=== PATIENT | male | born 1965 | race Caucasian/White ===

== ENCOUNTER 2019-03-21 11:28 | Inpatient (IN) | payer OTHER ==
[~2019-03-21] VITALS: Ht 170.2 cm; Wt 78.5 kg
--- NOTE | ~2019-03-21 | CON ---
[address] [address] CONSULTATION Name: EVAN HURTADO Room: [address] IN M.R.#: [id number] Admission: 03/21/19 Attend Phys: Hetal Monet MD Discharge: Date of : 65 Report #: [id number] THIS REPORT FOR: //name// CC: Basilia Monet DATE OF SERVICE: 03/22/2019 HISTORY OF PRESENT ILLNESS: This is a 53-year-old male patient who was evaluated by me for any neurological etiology for the patient's dizziness. The patient indicated that he was having diarrhea. He started having dizziness. Dizziness is worse when he tries to get up. He was given some fluid in the Emergency Room. He is feeling better, but he is not back to the baseline. He gives a history that he had episodes of dizziness every year. His history is poor in that regard. He is fully conscious during this episode and he has no focal neurological deficit with it. REVIEW OF SYSTEMS: Indicates his grandmother of some congenital heart disease. He does not know anything more about that. It looks like he had some nystagmus and lactic acidosis when he came in. He had some symptoms of problem with the eye in the past. He says that he has a history of hyperglycemia in the past. That was his relevant 14-point review of system. He is not complaining of any new eye, cardiac, respiratory, , musculoskeletal, constitutional, dermatological, hematological, psychiatric, throat, allergic symptom associated with present symptomatology. PAST MEDICAL HISTORY: Positive for similar dizziness, but they are not very frequent. FAMILY HISTORY: Positive for congenital heart disease, but the exact diagnosis is unknown. SOCIAL HISTORY: He drinks alcohol very rarely. PHYSICAL EXAMINATION: Indicates he is alert, responsive and able to follow simple and complex commands. His speech, concentration, fund of knowledge and memory is at his baseline. Cranial nerve examination 2-12 looks unremarkable. It looks like his nystagmus has resolved. His strength, sensation, reflexes and tone is symmetrical. He has no cerebellar sign. He has no papilledema. He is a well-developed individual who does not have any dysmorphic features of eyes, ears and face. His vision and hearing looks adequate. His pulses are palpable. He has no edema, cyanosis or jaundice. Cardiac examination is unremarkable. No respiratory difficulty was noticed. His blood pressure is 109/72, it has been even lower than that. His respiration is 18, pulse is [address] [place] [address] CONSULTATION Name: EVAN HURTADO Room: [address]#: [id number] Admission: 03/21/19 Attend Phys: Hetal Monet MD Discharge: Date of : 65 Report #: [id number] and temperature is 98. LABORATORY DATA: His white count is normal and his sodium and potassium is normal. He had head CT and MRI that does not show any pathology in the brain, which can explain the patient's symptoms. IMPRESSION: The patient's clinical presentation is more suggestive of dehydration because of the patient's diarrhea. If he has diabetes, he is predisposed to autonomic problems and these symptoms can come even with mild dehydration. Worrisome feature in this patient is that he gives a history that the grandmother of some congenital condition. He also had his episode of dizziness every year or so. Because of that, I will do some more workup, I will order an echocardiogram and MRA. If that is unremarkable, I do not think any further neurological workup is needed until the patient has more symptoms. All of it was discussed with the patient and he wants to follow this plan. Thank you very much for this referral. By: [id number] Teixeira MD /nt
[~2019-03-21 11:28] MED LIST: ACETAMINOPHEN-1 EAC1; ATIVAN0.5 MG PO; AZITHROMYCIN 2250 MG PO; BUTALB-ACETAMI1 EAC2; CARISOPRODOL 3350 MG PO; CEFUROXIME250 MG PO; CELEXA 10 MG TA10 M1 PO; CELEXA10 MG PO; CLONAZEPAM 1 MG1 M1 PO; COZAAR 50 MG TA50 M2 PO; CYCLOBENZAPRINE10 MG; DUONEB 2.5-0.5 M3 ML INH; FIORICET 50-321 EACH; FLEXERIL PO; FLOXIN OTI0.3 %/5 M1 OT; GLUCOPHAGE XR500 MG PO; HYDROCODON-ACE1 EACH; HYZAAR 100-251 EACH PO; LEVAQUIN 750 M750 MG PO; LIPITOR 20 MG T20 M1 PO; MAXALT MLT ODT10 M1 PO; MEDROLDOSEPACK PO; METFORMIN HCL500 MG PO; NAPROSYN500 MG; NAPROSYN500 MG PO; NOHOMEMEDICATIONS; NOVOLOG100 UNIT/1 SUBQ; OMEPRAZOLE40 MG PO; POTASSIUM20 PO; PREDNISONE50 MG PO; PRILOSEC40 MG PO; SYMBICORT160 MCG/4. INH; TAMIFLU75 MG PO; TOPROL XL100 MG PO; TOPROL XL25 MG PO; TRAMADOL 50 MG50 MG; TRAMADOL 50 MG50 MG PO; TRAZODONE HCL100 MG PO; VICODIN 5-3001 EACH PO; VICODIN 5-5001 EACH PO; ZANAFLEX4 MG PO; ZOFRAN ODT4 MG PO; ZOLOFT50 MG PO; ZOSYN 3/0.373.375 G3 IVPB
[2019-03-21 11:34] VITALS: BP 111/82
[2019-03-21 11:53] LABS: ABSOLUTE BASOPHILS 0.1 thou/uL (0.0-0.2); ABSOLUTE EOSINOPHILS 0.1 thou/uL (0.0-0.7); ABSOLUTE LYMPHOCYTES 1.7 thou/uL (0.8-5.3); ABSOLUTE MONOCYTES 0.9 thou/uL (0.0-1.2); ABSOLUTE NEUTROPHILS 7.3 thou/uL (1.6-8.1); BASOPHILS 0.5 %; EOSINOPHILS 0.8 %; HEMATOCRIT 45.7 % (42.0-52.0); HEMOGLOBIN 16.1 gm/dL (14.0-18.0); LYMPHOCYTES 16.9 %; MCH 31.9 pg (26.0-34.0); MCHC 35.3 g/dL (28.0-37.0); MCV 90.5 fL (80.0-100.0); MONOCYTES 8.6 %; MPV 8.2 fl. (7.2-11.1); NUCLEATED RBCS 0 /100WBC; PLATELET COUNT* 230 thou/uL (150-400); POLYS 73.2 %; RBC 5.06 mil/uL (4.50-6.00); RDW-CV 14.3 % (10.5-14.5)
[2019-03-21 12:04] LABS: ANION GAP 13 mmol/L (7-16); BUN 26 mg/dL (7-18); CHLORIDE 99 mmol/L (98-107); CO2 24 mmol/L (21-32); CREATININE 1.2 mg/dL (0.6-1.3); GLUCOSE 180 mg/dL (70-99); POTASSIUM 3.9 mmol/L (3.5-5.1); SODIUM 136 mmol/L (136-145)
[2019-03-21 12:08] LABS: PROTIME 10.1 Seconds (9.20-11.50)
[2019-03-21 12:13] LABS: ALBUMIN 3.9 g/dL (3.4-5.0); ALKALINE PHOSPHATASE 96 U/L (46-116); LIPASE 162 U/L (73-393); SGOT 18 U/L (15-37); SGPT 37 U/L (30-65); TOTAL BILIRUBIN 0.8 mg/dL (<0.1-1.0); TOTAL PROTEIN 7.6 g/dL (6.4-8.2); TROPONIN-I LEVEL <0.06 ng/mL (<0.06)
--- NOTE | 2019-03-21 12:31 | NUR ---
CONSTANTIN NOTIFIED UPON PT RETURN FROM CT. PT CONNECTED TO O2 AND MONITOR
[2019-03-21 12:45] LABS: BE -5.7 mmol/L (-2 to +3); PCO2 32.7 mmHg (35.0-45.0); pH 7.369 (7.340-7.450)
[2019-03-21 12:48] LABS: PO2 135.8 mmHg (75.0-100.0)
[2019-03-21 13:00] LABS: URINE BILIRUBIN NEGATIVE (Negative); URINE BLOOD NEGATIVE (Negative); URINE CLARITY CLEAR; URINE COLOR DARK YELLOW; URINE GLUCOSE-RANDOM TRACE (Negative); URINE KETONES TRACE (Negative); URINE LEUKOCYTES-REFLEX NEGATIVE (Negative); URINE NITRITE-REFLEX NEGATIVE (Negative); URINE PROTEIN 1+ (Negative); URINE UROBILINOGEN 0.2 E.U./dl (0.2-1.0)
--- NOTE | 2019-03-21 14:04 | EKG ---
[place] [address] ELECTROCARDIOGRAM REPORT Name: EVAN HURTADO Room: [place] [address] ADM IN .R.#: [id number] Admission: 03/21/19 Attend Phys: Hetal Monet MD Discharge: Date of : 65 Report #: [id number] THIS REPORT FOR: //name// [facility] ED Test Date: 2019-03-21 Test Time: 11:58:56 Pat Name: EVAN HURTADO Department: Room: [facility] Gender: M International Student Advisor: : [id number] Requested By: Hue Melgoza Order Number: [id number] MD: Cristian Mendoza Measurements Intervals [place] Rate: 87 P: 7 OK: 164 QRS: -18 QRSD: 89 T: 30 QT: 356 QTc: 429 Interpretive Statements Sinus rhythm Borderline left axis deviation Abnormal R-wave progression, early transition Compared to ECG 11/15/2016 08:19:53 Sinus tachycardia no longer present T-wave abnormality no longer present Electronically Signed On 03-21-2019 14:03:59 CDT by Cristian Mendoza [email or web address] <ELECTRONICALLY SIGNED> By: Cristian Mendoza MD, [facility] 03/21/19 1403 [id number] [id number] Cristian Mendoza MD, [facility] /EPI
[2019-03-21 15:17] LABS: AMP/METHAMP Negative (Negative); BARBITURATES Negative (Negative); BENZODIAZEPINES Negative (Negative); COCAINE Negative (Negative); METHADONE Negative (Negative); OPIATES Negative (Negative); PCP Negative (Negative); THC Negative (Negative)
--- NOTE | 2019-03-21 16:37 | NUR ---
MRI CHECKLIST COMPLETED BY PATIENT; PLACED IN PATIENT'S CHART. PT REMOVED EARRING FROM LEFT EAR, REFUSED BAGGIE TO PUT IT IN, STATED HE WOULD PUT IT IN HIS HAT. PT DENIED HAVING ANY FURTHER METAL ON BODY. PT IN GOWN AND READY FOR MRI.
[2019-03-21 17:46] VITALS: BP 107/75
--- NOTE | 2019-03-21 17:50 | NUR ---
ER ADMIT TO 232 VIA CART TELEPHONE REPORT GIVEN PRIOR TO ARRIVAL PATIENT SETTLED IN BED ORIENTED TO AND CALL LIGHT DENIES PAIN VS STABLE SEE CHART
[2019-03-21 18:00] VITALS: BP 110/66
[2019-03-21 19:45] VITALS: BP 97/64
[2019-03-22] VITALS: BP 102/57
[2019-03-22 04:00] VITALS: BP 100/62
[2019-03-22 04:35] LABS: ABSOLUTE EOSINOPHILS 0.1 thou/uL (0.0-0.7); ABSOLUTE LYMPHOCYTES 1.8 thou/uL (0.8-5.3); ABSOLUTE MONOCYTES 0.7 thou/uL (0.0-1.2); ABSOLUTE NEUTROPHILS 4.1 thou/uL (1.6-8.1); BASOPHILS 0.5 %; EOSINOPHILS 1.7 %; HEMATOCRIT 40.9 % (42.0-52.0); LYMPHOCYTES 26.6 %; MCH 31.6 pg (26.0-34.0); MCHC 34.6 g/dL (28.0-37.0); MCV 91.4 fL (80.0-100.0); MPV 8.6 fl. (7.2-11.1); NUCLEATED RBCS 0 /100WBC; PLATELET COUNT* 174 thou/uL (150-400); POLYS 60.2 %; RBC 4.47 mil/uL (4.50-6.00); RDW-CV 13.7 % (10.5-14.5); WBC 6.7 thou/uL (4.0-11.0)
[2019-03-22 04:48] LABS: ANION GAP 12 mmol/L (7-16); BUN 25 mg/dL (7-18); CALCIUM 9.1 mg/dL (8.5-10.1); CHLORIDE 106 mmol/L (98-107); CHOLESTEROL 113 mg/dL (<200); CO2 23 mmol/L (21-32); CREATININE 0.9 mg/dL (0.6-1.3); GLUCOSE 153 mg/dL (70-99); HDL CHOLESTEROL 40 mg/dL (>40); LDL CHOLESTEROL 38 mg/dL (<100); MAGNESIUM 1.6 mg/dL (1.8-2.4); SODIUM 141 mmol/L (136-145); TC:HDL 2.8 Ratio (Not establshd); TRIGLYCERIDE 179 mg/dL (<150); VLDL 36 mg/dL (<40)
[2019-03-22 04:49] LABS: SERUM ASSESSMENT Clear
[2019-03-22 04:51] LABS: HEMOGLOBIN 14.1 gm/dL (14.0-18.0)
--- NOTE | 2019-03-22 05:28 | NUR ---
PATIENT PARTIALLY PROGRESSING TOWARDS GOALS: VSS ON ROOM AIR. PATIENT CONTINUES TO HAVE VERTIGO UPON AMBULATION. EDUCATED ON FALL PRECAUTIONS AND REQUESTED THAT PATIENT CALL BEFORE GOING TO THE BATHROOM. PATIENT COMPLIANT WITH FALL PRECAUTIONS. CALL LIGHT WITHIN REACH
--- NOTE | 2019-03-22 07:10 | NUR ---
CHANGE OF SHIFT BEDSIDE REPORT GIVEN PATIENT SEEN AT BEDSIDE, LAYING IN BED WATCHING TV ASSUMED PATIENT CARE
[2019-03-22 08:00] VITALS: BP 109/72
[2019-03-22 10:09] LABS: GLYCOHEMOGLOBIN (HGB A1C) 7.4 % (4.8-5.6)
--- NOTE | 2019-03-22 10:58 | NUR ---
SW met with pt to complete initial assessment, introduce self, and SW role. Pt alert, oriented, pleasant. Pt now lives at home with his sister; pt reported that he and his are since pt was last hospitalized. Pt independent with mobility and ADLs tasks. Pt does not anticipate any dc needs.
[2019-03-22 11:48] VITALS: BP 108/69
[2019-03-22 15:42] VITALS: BP 107/74
--- NOTE | 2019-03-22 16:24 | 2DMMODE ---
[place] [address] 2 D/M-MODE ECHOCARDIOGRAM Name: EVAN HURTADO Room: [address] IN [facility]#: [id number] Admission: 03/21/19 Attend Phys: Hetal Monet MD Discharge: Date of : 65 Date of Service: 03/22/19 1624 Report #: [id number] THIS REPORT FOR: //name// APPROVED REPORT Study performed: 03/22/2019 14:24:12 EXAM: Comprehensive 2D, Doppler, and color-flow Echocardiogram Patient Location: In-Patient Room #: .[facility] Status: routine BSA: 1.91 HR: 93 bpm BP: 109/72 mmHg Rhythm: NSR Other Information Study Quality: Good Indications dizziness 2D Dimensions IVSd: 12.45 (7-11mm) LVOT Diam: 19.50 (18-24mm) LVDd: 38.16 mm PWd: 10.01 (7-11mm) Ascending Ao: 33.90 (22-36mm) LVDs: 26.83 (25-40mm) Aortic Root: 32.79 mm Volumes Left Atrial Volume (Systole) LA ESV Index: 17.00 mL/m2 Aortic Valve AoV Peak Vahid.: 1.38 m/s AO Peak Gr.: 7.56 mmHg LVOT Max P.77 mmHg AO Mean Gr.: 4.30 mmHg LVOT Mean P.50 mmHg LVOT Max V: 1.39 m/s AO V2 VTI: 20.62 cm LVOT Mean V: 0.84 m/s JAXSON (VTI): 3.23 cm2 LVOT V1 VTI: 22.31 cm Mitral Valve E/A Ratio: 0.79 MV Decel. Time: 208.32 ms MV E Max Vahid.: 0.93 m/[place] [address] 2 D/M-MODE ECHOCARDIOGRAM Name: EVAN HURTADO Room: [address] IN .R.#: [id number] Admission: 03/21/19 Attend Phys: Hetal Monet MD Discharge: Date of : 65 Date of Service: 03/22/19 1624 Report #: [id number] MV PHT: 60.41 ms MVA (PHT): 3.64 cm2 TDI E/Lateral E': 10.33 E/Medial E': 11.63 Medial E' Vahid.: 0.08 m/s Lateral E' Vahid.: 0.09 m/s Pulmonary Valve PV Peak Vahid.: 1.14 m/s PV Peak Gr.: 5.17 mmHg Tricuspid Valve RAP Estimate: 5.00 mmHg TR Peak Gr.: 23.03 mmHg RVSP: 28.00 mmHg PA Pressure: 28.00 mmHg Left Ventricle The left ventricle is normal size. There is normal LV segmental wall motion. There is normal left ventricular wall thickness. Left ventricular systolic function is normal. The left ventricular ejection fraction is within the normal range. LVEF is 65-70%. Grade I - abnormal relaxation pattern. Right Ventricle The right ventricle is normal size. The right ventricular systolic function is normal. Atria The left atrium size is normal. The right atrium size is normal. Aortic Valve The aortic valve is normal in structure. No aortic regurgitation is present. There is no aortic valvular stenosis. Mitral Valve The mitral valve is normal in structure. Mild mitral regurgitation. No evidence of mitral valve stenosis. Tricuspid Valve The tricuspid valve is normal in structure. Mild tricuspid regurgitation. estimated pa pressure 39 mm hg Pulmonic Valve The pulmonary valve is normal in structure. [place] [address] 2 D/M-MODE ECHOCARDIOGRAM Name: EVAN HURTADO Room: [address]#: [id number] Admission: 03/21/19 Attend Phys: Hetal Monet MD Discharge: Date of : 65 Date of Service: 03/22/19 1624 Report #: [id number] Great Vessels The aortic root is normal in size. IVC is normal in size and collapses >50% with inspiration. Pericardium There is no pericardial effusion. <Conclusion> LVEF is 65-70%. Mild mitral regurgitation. <ELECTRONICALLY SIGNED> By: Cristian Mendoza MD, [facility] 03/22/19 1624 1624 1624 Cristian Mendoza MD, [facility] /INF
[2019-03-22 20:00] VITALS: BP 102/61
[2019-03-23] VITALS: BP 105/70
[2019-03-23 04:00] VITALS: BP 132/85
--- NOTE | 2019-03-23 04:22 | NUR ---
PATIENT NOT PROGRESSING TOWARDS GOALS: PATIENT CONTINUES TO HAVE VERTIGO UPON AMBULATION DESPITE SCOPALAMINE PATCH. INSTRUCTED TO CALL PRIOR TO GETTING OUT OF BED FOR SAFETY. PATIENT USES CALL LIGHT APPROPRIATELY. PATIENT DENIES PAIN AND DISCOMFORT. CALL LIGHT WITHIN REACH
[2019-03-23 08:00] VITALS: BP 128/95
[2019-03-23 12:37] VITALS: BP 122/92
[2019-03-23] MEDS ORDERED: COZAAR 25 MG TA25 M1 PO (13:31)
[2019-03-23] MEDS ORDERED: TOPROL XL50 MG PO (13:31)
[2019-03-23] MEDS ORDERED: TRANSDERM-SCOP1 EACH TRANSDERM (13:34)
[2019-03-23] MEDS ORDERED: ZOLOFT25 MG PO (14:34)
[2019-03-23 14:48] VITALS: BP 122/92
== END 2019-03-23 16:00 | disposition home or self-care (01) | DRG 149 ==
LOC: M.ERS 11:28 → M.2W 13:09 → M.TBA-ER 13:09 → M.2W 17:54
PROVIDERS: Personal Emergency Response Attendant; ADMIT Family Medicine
DX: H81.10 Benign paroxysmal vertigo, unspecified ear (principal); E87.2 Acidosis; B34.9 Viral infection, unspecified; R00.1 Bradycardia, unspecified; T50.905A Adverse effect of unspecified drugs, medicaments and biological substances, initial encounter; I95.2 Hypotension due to drugs; I10 Essential (primary) hypertension; J44.9 Chronic obstructive pulmonary disease, unspecified; E78.5 Hyperlipidemia, unspecified; E78.00 Pure hypercholesterolemia, unspecified; E11.65 Type 2 diabetes mellitus with hyperglycemia; F17.220 Nicotine dependence, chewing tobacco, uncomplicated; H55.00 Unspecified nystagmus; Z82.49 Family history of ischemic heart disease and other diseases of the circulatory system; Z80.0 Family history of malignant neoplasm of digestive organs; Z79.82 Long term (current) use of aspirin; Z79.899 Other long term (current) drug therapy